=== PATIENT | male | born 2005 | race Caucasian/White ===

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

== ENCOUNTER → 2025-01-05 | Outpatient (CLI) | payer OTHER ==
[~2025-01-05] MED LIST: CEPH500C PO
== END ==
LOC: M PLAIMG 06:37
PROVIDERS: ATTEND Orthopaedic Surgery
DX: S83.282D Other tear of lateral meniscus, current injury, left knee, subsequent encounter (principal); Y93.9 Activity, unspecified; Y92.9 Unspecified place or not applicable